=== PATIENT | male | born 1955 | race Asian ===

== ENCOUNTER 2017-02-05 08:59 | Outpatient (CLI) | payer OTHER ==
[~2017-02-05 08:59] MED LIST: ALBU0.5N13 INH; ALBU90AE13 INH; AMLO5TAB PO; ASA LOW DOSE81 MG PO; BUDE1AER5 INH; CLON0.1T16 PO; FLUTICASONE0.005 % EX; GLIP10TA55 PO; HYDR25TA60 PO; INSU100I2 SC; IRBE150T4 PO; IRBESARTAN150 MG PO; MELOXICAM7.5 MG OR; NEURONTIN800 MG PO; NEXIUM40 M1 PO; NORCO 10/325***1 TAB PO; ONDA4TAB3 PO; SINGULAIR10 MG PO; TOPAMAX50 MG OR; TRAM50TA PO; VITAMIN D H1000 UNIT PO
== END 2017-02-05 19:13 | disposition home or self-care (01) ==
LOC: US 08:59
DX: N17.9 Acute kidney failure, unspecified (principal)

== ENCOUNTER 2017-04-01 15:11 | Outpatient (CLI) | payer OTHER ==
[2017-04-01 15:49] LABS: POTASSIUM 4.5 mmol/L (3.6-5.2)
[2017-04-01 17:05] LABS: PLATELET COUNT 224 K/uL (142-355)
== END 2017-04-01 19:10 | disposition home or self-care (01) ==
LOC: LABW 15:11
PROVIDERS: Internal Medicine
DX: N18.9 Chronic kidney disease, unspecified (principal); I10 Essential (primary) hypertension; E11.9 Type 2 diabetes mellitus without complications
CPT/HCPCS: 36415; 80069; 85027

== ENCOUNTER 2017-07-22 09:22 | Outpatient (CLI) | payer OTHER ==
[2017-07-22 10:10] LABS: PLATELET COUNT 186 K/uL (142-355)
[2017-07-22 10:18] LABS: POTASSIUM 4.6 mmol/L (3.6-5.2)
== END 2017-07-22 19:01 | disposition home or self-care (01) ==
LOC: LABW 09:22 → US 09:30 → LABW 19:01
PROVIDERS: Nurse Practitioner Family
DX: R10.84 Generalized abdominal pain (principal); R11.2 Nausea with vomiting, unspecified
CPT/HCPCS: 36415; 80053; 85027

== ENCOUNTER 2017-12-10 15:53 | Outpatient (CLI) | payer OTHER ==
[2017-12-10 16:14] LABS: POTASSIUM 5.8 mmol/L (3.6-5.2)
[2017-12-11] MEDS ORDERED: ENDOCET1 TA3 PO (14:22)
[2017-12-11] MEDS ORDERED: NUCYNTA100 MG PO (14:22)
== END 2017-12-10 19:42 | disposition home or self-care (01) ==
LOC: LABW 15:53
PROVIDERS: Nurse Practitioner Family
DX: E87.5 Hyperkalemia (principal)
CPT/HCPCS: 36415; 80053

== ENCOUNTER 2018-01-06 14:28 | Outpatient (CLI) | payer OTHER ==
[~2018-01-06 14:28] MED LIST changes: +ENDOCET1 TA3 PO; +NUCYNTA100 MG PO
[2018-01-06 14:40] LABS: POTASSIUM 4.1 mmol/L (3.6-5.2)
[2018-01-06 14:41] LABS: PLATELET COUNT 239 K/uL (142-355)
== END 2018-01-06 20:08 | disposition home or self-care (01) ==
LOC: LAB 14:28
PROVIDERS: Internal Medicine
DX: I12.9 Hypertensive chronic kidney disease with stage 1 through stage 4 chronic kidney disease, or unspecified chronic kidney disease (principal); N18.3 Chronic kidney disease, stage 3 (moderate)
CPT/HCPCS: 36415; 80048; 82040; 84100; 84550; 85027

== ENCOUNTER 2018-01-08 11:05 | Outpatient (CLI) | payer OTHER ==
[2018-01-08 11:48] LABS: PLATELET COUNT 251 K/uL (142-355)
[2018-01-08 13:01] LABS: POTASSIUM 4.7 mmol/L (3.6-5.2)
== END 2018-01-08 22:18 | disposition home or self-care (01) ==
LOC: US 11:05
PROVIDERS: Internal Medicine
DX: I12.9 Hypertensive chronic kidney disease with stage 1 through stage 4 chronic kidney disease, or unspecified chronic kidney disease (principal); N18.4 Chronic kidney disease, stage 4 (severe); R22.42 Localized swelling, mass and lump, left lower limb; R60.9 Edema, unspecified
CPT/HCPCS: 36415; 80061; 80069; 83880; 85027

== ENCOUNTER 2018-01-09 11:01 | Outpatient (CLI) | payer OTHER | END 2018-01-09 21:07 | disposition home or self-care (01) | LOC: US 11:01 | DX: M79.605 Pain in left leg (principal); R60.0 Localized edema ==

== ENCOUNTER 2018-04-30 12:49 | Outpatient (CLI) | payer OTHER ==
[2018-04-30 13:51] LABS: PLATELET COUNT 290 K/uL (142-355)
[2018-04-30 14:19] LABS: POTASSIUM 4.8 mmol/L (3.6-5.2)
== END 2018-04-30 20:09 | disposition home or self-care (01) ==
LOC: LABW 12:49
PROVIDERS: Nurse Practitioner Family
DX: R60.0 Localized edema (principal); E11.65 Type 2 diabetes mellitus with hyperglycemia; I10 Essential (primary) hypertension; E78.4 Other hyperlipidemia; R09.89 Other specified symptoms and signs involving the circulatory and respiratory systems; M54.89 Other dorsalgia; E55.9 Vitamin D deficiency, unspecified; K21.9 Gastro-esophageal reflux disease without esophagitis
CPT/HCPCS: 36415; 80053; 80061; 83036; 84153; 84443; 85027

== ENCOUNTER 2018-05-11 10:48 | Outpatient (CLI) | payer OTHER | END 2018-05-11 19:49 | disposition home or self-care (01) | LOC: LABW 10:48 | PROVIDERS: Internal Medicine | DX: N18.5 Chronic kidney disease, stage 5 (principal) | CPT/HCPCS: 36415; 80069 ==

== ENCOUNTER 2018-05-18 11:08 | Outpatient (CLI) | payer OTHER ==
[2018-05-18 11:48] LABS: PLATELET COUNT 216 K/uL (142-355)
[2018-05-18 11:59] LABS: POTASSIUM 4.5 mmol/L (3.6-5.2)
== END 2018-05-18 22:39 | disposition home or self-care (01) ==
LOC: LABW 11:08
PROVIDERS: Internal Medicine
DX: I12.0 Hypertensive chronic kidney disease with stage 5 chronic kidney disease or end stage renal disease (principal); N18.5 Chronic kidney disease, stage 5; E11.29 Type 2 diabetes mellitus with other diabetic kidney complication
CPT/HCPCS: 36415; 80048; 82040; 84100; 84550; 85027

== ENCOUNTER 2018-05-23 11:15 | Outpatient (CLI) | payer OTHER ==
[2018-05-23 11:50] LABS: PLATELET COUNT 238 K/uL (142-355)
[2018-05-24 18:34] LABS: POTASSIUM 4.7 mmol/L (3.6-5.2)
== END 2018-05-23 19:08 | disposition home or self-care (01) ==
LOC: LABW 11:15
PROVIDERS: Internal Medicine
DX: I10 Essential (primary) hypertension (principal); N18.9 Chronic kidney disease, unspecified
CPT/HCPCS: 36415; 80069; 85027

== ENCOUNTER 2018-05-27 14:56 | Outpatient (CLI) | payer OTHER | END 2018-05-27 23:59 | disposition home or self-care (01) | LOC: RAD 14:56 | DX: K76.9 Liver disease, unspecified (principal); Z99.2 Dependence on renal dialysis; N18.6 End stage renal disease | CPT/HCPCS: 36415; 86317; 86704; 86705; 86706; 86803; 87350 ==

== ENCOUNTER 2019-09-29 11:28 | Outpatient (CLI) | payer OTHER | END 2019-09-29 19:51 | disposition home or self-care (01) | LOC: LAB 11:28 | DX: D64.89 Other specified anemias (principal) | CPT/HCPCS: 85014; 85018 ==

== ENCOUNTER 2020-03-19 11:15 | Emergency (ER) | payer OTHER ==
[~2020-03-19] VITALS: Ht 167.6 cm; Wt 95.3 kg
[2020-03-19 11:25] VITALS: TEMP 98.1
[2020-03-19 12:04] LABS: PLATELET COUNT 191 K/uL (142-355)
[2020-03-19 12:21] LABS: PARTIAL THROMBOPLASTIN TIME 27.4 SECONDS (24.5-33.6)
[2020-03-19 12:27] LABS: POTASSIUM 4.2 mmol/L (3.6-5.2)
[2020-03-19 13:40] VITALS: BP 184/83
== END 2020-03-19 13:58 | disposition home or self-care (01) ==
LOC: ED 11:15
PROVIDERS: Hospitalist
DX: I16.0 Hypertensive urgency (principal); N18.6 End stage renal disease; Z99.2 Dependence on renal dialysis; R51 Headache
CPT/HCPCS: 36415; 80053; 82550; 83880; 84484; 85027; 85610; 85730; 93005; 96374; 96375; 99284; J0360; J2270; J2405

== ENCOUNTER 2020-03-31 11:15 | Emergency (ER) | payer OTHER ==
[~2020-03-31] VITALS: Ht 167.6 cm; Wt 95.3 kg
[2020-03-31 13:04] LABS: PLATELET COUNT 180 K/uL (142-355)
[2020-03-31 13:23] LABS: POTASSIUM 3.8 mmol/L (3.6-5.2)
[2020-03-31 13:26] LABS: PARTIAL THROMBOPLASTIN TIME 25.3 SECONDS (24.5-33.6)
[2020-03-31 16:53] VITALS: BP 158/80; TEMP 98
== END 2020-03-31 16:54 | disposition home or self-care (01) ==
LOC: ED 11:15
PROVIDERS: Family Medicine
DX: R51 Headache (principal); H53.8 Other visual disturbances; N18.6 End stage renal disease; Z99.2 Dependence on renal dialysis
CPT/HCPCS: 36415; 80053; 85027; 85610; 85730; 99283

== ENCOUNTER 2020-06-08 23:54 | Emergency (ER) | payer OTHER ==
[~2020-06-08] VITALS: Ht 167.6 cm; Wt 95.3 kg
[2020-06-09 00:25] LABS: PLATELET COUNT 257 K/uL (142-355)
[2020-06-09 00:29] LABS: POTASSIUM 4.2 mmol/L (3.6-5.2)
[2020-06-09 01:50] VITALS: BP 142/88; TEMP 98.8
== END 2020-06-09 02:04 | disposition home or self-care (01) ==
LOC: ED 23:54
DX: R04.2 Hemoptysis (principal); J20.9 Acute bronchitis, unspecified; Z72.0 Tobacco use
CPT/HCPCS: 80053; 85027; 93005; 99283

== ENCOUNTER 2024-01-05 01:11 | Inpatient (IN) | payer OTHER ==
[2024-01-05] VITALS (7 sets, daily range): BP systolic 149–174; BP diastolic 62–98; TEMP 98.1–98.3; Ht 172.7 cm; Wt 91.2 kg
[~2024-01-05] VITALS: Ht 172.7 cm; Wt 91.2 kg
[~2024-01-05 01:11] MED LIST changes: +NITROGLYCERIN 0.4 MG TAB SL ONE
[2024-01-05] MEDS ORDERED: NITROGLYCERIN 0.4 MG TAB SL ONE (01:34)
[2024-01-05] MEDS ORDERED: METHYLPREDNISOLONE SOD SUCC 125 MG ML INJ ONE (01:41)
[2024-01-05] MEDS ORDERED: MAGNESIUM SULFATE HEPTAHYDRATE INJ ONE (01:41)
[2024-01-05] MEDS ORDERED: FUROSEMIDE 20 MG/2 ML ONE ×3 (01:41→02:39)
[2024-01-05] MEDS ORDERED: LORAZEPAM 2 MG/ML ONE (01:42)
[2024-01-05] MEDS ORDERED: METHYLPREDNISOLONE SOD SUCC 125 MG IV ONE (01:43)
[2024-01-05] MEDS ORDERED: MAGNESIUM SULFATE 2 GM IV ONE (01:43)
[2024-01-05] MEDS ORDERED: LORAZEPAM 2 MG IV ONE (01:44)
[2024-01-05] MEDS ORDERED: SOD CHLORIDE 0.9% 100 ML IV ONE (01:44)
[2024-01-05 01:45] LABS: PLATELET COUNT 240 K/uL (142-355)
[2024-01-05 02:16] LABS: POTASSIUM 4.3 mmol/L (3.6-5.2)
[2024-01-05] MEDS ORDERED: DEXTROSE IV ONE (02:21)
[2024-01-05] MEDS ORDERED: LEVOFLOXACIN IV ONE (02:21)
[2024-01-05] MEDS ORDERED: LABETALOL HCL ONE (02:23)
[2024-01-05] MEDS ORDERED: DEXTROSE IVPB SCH (02:37)
[2024-01-05] MEDS ORDERED: LEVOFLOXACIN IVPB SCH (02:37)
[2024-01-05] MEDS ORDERED: LABETALOL HCL IV ONE (02:55)
[2024-01-05] MEDS ORDERED: ACETAMINOPHEN 325 MG TAB PO PRN (05:45)
[2024-01-05] MEDS ORDERED: INSULIN 100 UNITS/ML EA SC PRN (05:45)
[2024-01-05] MEDS ORDERED: HYDRALAZINE HCL 20 MG INJ IV PRN (05:45)
[2024-01-05] MEDS ORDERED: IPRATROPIUM-ALBUTEROL 1 SOL SOL INH PRN (05:45)
[2024-01-05] MEDS ORDERED: LORAZEPAM 1 MG IV ONE (05:52)
[2024-01-05 06:14] LABS: PLATELET COUNT 213 K/uL (142-355)
[2024-01-05] MEDS ORDERED: HYDRALAZINE HCL IV ONE ×2 (06:21→19:58)
[2024-01-05 06:30] LABS: POTASSIUM 5.1 mmol/L (3.6-5.2)
[2024-01-05] MEDS ORDERED: NITROGLYCERIN 250 ML IV SCH (08:06)
[2024-01-05] MEDS ORDERED: IPRATROPIUM-ALBUTEROL 1 SOL SOL INH ONE (08:08)
[2024-01-05] MEDS ORDERED: HEPARIN IV ONE (08:24)
[2024-01-05] MEDS ORDERED: [UNRECOGNIZED DRUG - OTHER] IV ONE (08:24)
[2024-01-05] MEDS ORDERED: HEPARIN SODIUM ONE (08:25)
[2024-01-05] MEDS ORDERED: ENOXAPARIN SODIUM 30 MG/0.3 ML SC SCH (09:00)
[2024-01-05] MEDS ORDERED: PANTOPRAZOLE SODIUM 40 MG TAB PO SCH (09:00)
[2024-01-05 09:56] LABS: PARTIAL THROMBOPLASTIN TIME 28.5 SECONDS (23.9-36.7)
[2024-01-05] MEDS ORDERED: Ondansetron HCl 4 MG INJ IV PRN (16:00)
[2024-01-05] MEDS ORDERED: PANTOPRAZOLE SODIUM 40 MG TAB PO ONE (17:51)
[2024-01-05] MEDS ORDERED: GI COCKTAIL-HYOSCYAMINE 30 ML ML PO ONE (19:58)
[2024-01-05 20:05] LABS: PARTIAL THROMBOPLASTIN TIME 82.2 SECONDS (23.9-36.7)
[2024-01-06] MEDS ORDERED: GI COCKTAIL-HYOSCYAMINE 30 ML ML PO ONE
[2024-01-06] MEDS ORDERED: LEVOFLOXACIN IVPB SCH ×2 (02:00→06:00)
[2024-01-06] MEDS ORDERED: DEXTROSE IVPB SCH ×2 (02:00→06:00)
[2024-01-07] MEDS ORDERED: LEVOFLOXACIN IVPB SCH (09:00)
[2024-01-07] MEDS ORDERED: DEXTROSE IVPB SCH (09:00)
== END 2024-01-05 11:25 | disposition short-term general hospital (02) | DRG 280 ==
LOC: ED 01:11 → EDIP 04:32
PROVIDERS: ADMIT Internal Medicine Endocrinology, Diabetes & Metabolism; ATTEND Internal Medicine Endocrinology, Diabetes & Metabolism
DX: I21.4 Non-ST elevation (NSTEMI) myocardial infarction (principal); J18.9 Pneumonia, unspecified organism; N18.6 End stage renal disease; R06.02 Shortness of breath; R06.2 Wheezing; I50.9 Heart failure, unspecified; Z99.2 Dependence on renal dialysis; E11.40 Type 2 diabetes mellitus with diabetic neuropathy, unspecified; E78.49 Other hyperlipidemia; I11.0 Hypertensive heart disease with heart failure; F17.210 Nicotine dependence, cigarettes, uncomplicated; Z79.4 Long term (current) use of insulin; R09.02 Hypoxemia
CPT/HCPCS: 36415; 36600; 80053; 82805; 83880; 84484; 85027; 85610; 85730; 87040; 93005; 94664; 96365; 96366; 96375; 99284; J0360; J1644; J1940; J1956; J2060; J2405; J2930; J3475; J3490